=== PATIENT | male | born 1980 | race Caucasian/White ===

== ENCOUNTER 2016-11-01 17:03 | Emergency (ER) | payer SELFPAY ==
[~2016-11-01] VITALS: Ht 180.3 cm; Wt 93.2 kg
[~2016-11-01 17:03] MED LIST: ATENOLOL100 MG OR; ATENOLOL50 MG; CIPRO500 MG OR; FISH OIL1000 MG OR; FLEXERIL PO; ULTRAM50 M1 PO
[2016-11-01] MEDS ORDERED: NAPROSYN500 MG PO (19:15)
[2016-11-01 19:25] VITALS: BP 149/84
== END 2016-11-01 19:25 | disposition home or self-care (01) | DRG 558 ==
LOC: ED 17:03
DX: M76.52 Patellar tendinitis, left knee (principal); M25.462 Effusion, left knee; R50.9 Fever, unspecified

== ENCOUNTER 2018-04-30 18:20 | Emergency (ER) | payer SELFPAY ==
[~2018-04-30] VITALS: Ht 180.3 cm; Wt 86.0 kg
[~2018-04-30 18:20] MED LIST changes: +NAPROSYN500 MG PO
[2018-04-30 19:48] LABS: HEMATOCRIT 47.2 % (39.0-50.0); HEMOGLOBIN 16.2 g/dl (14.0-18.0); IMMATURE GRANULOCYTES 0.5 % (0.0-5.0); MEAN CORPUSCULAR HGB 31.9 pG CALC (26.0-32.0); MEAN CORPUSCULAR HGB CONC 34.3 g/L CALC (32.0-36.0); NEUT# 6.61 thou/uL (1.82-7.42); RED BLOOD COUNT 5.08 mill/uL (4.70-6.10)
[2018-04-30 19:49] LABS: MEAN CELL VOLUME 92.9 fL CALC (80.0-100.0)
[2018-04-30 20:06] LABS: ALBUMIN 4.3 g/dL (3.2-5.0); ALKALINE PHOSPHATASE 60 u/l (38-126); ANION GAP 16 (6-22 (CALC)); BILIRUBIN, TOTAL 0.4 mg/dL (0.0-1.4); BUN 15 mg/dL (9-20); BUN/CREATININE RATIO 13 (12-20 (CALC)); CARBON DIOXIDE 27 mmol/l (22-30); CHLORIDE 104 mmol/l (95-108); CREATININE 1.1 mg/dL (0.7-1.3); GFR > 60 ML/MIN (>=60 (CALC)); GFR FOR AFR.AMER. > 60 ML/MIN (>=60 (CALC)); POTASSIUM 3.9 mmol/l (3.5-5.1); SGOT/AST 23 u/l (17-59); SODIUM 142 mmol/l (137-146)
[2018-04-30] MEDS ORDERED: MEDDOSEPAK PO (20:30)
[2018-04-30] MEDS ORDERED: INDOCIN25 MG PO (20:30)
[2018-04-30] MEDS ORDERED: LORTAB 1010 MG PO (20:30)
[2018-04-30 20:44] VITALS: BP 167/115
== END 2018-04-30 20:44 | disposition home or self-care (01) | DRG 554 ==
LOC: ED 18:20
PROVIDERS: Emergency Medicine
DX: M10.062 Idiopathic gout, left knee (principal); I10 Essential (primary) hypertension; F17.210 Nicotine dependence, cigarettes, uncomplicated

== ENCOUNTER 2019-05-21 01:51 | Emergency (ER) | payer SELFPAY ==
[~2019-05-21] VITALS: Ht 180.3 cm; Wt 95.0 kg
[~2019-05-21 01:51] MED LIST changes: +INDOCIN25 MG PO; +LORTAB 1010 MG PO; +MEDDOSEPAK PO
[2019-05-21 02:56] LABS: HEMATOCRIT 44.2 % (39.0-50.0); HEMOGLOBIN 14.9 g/dl (14.0-18.0); IMMATURE GRANULOCYTES 0.4 % (0.0-5.0); MEAN CELL VOLUME 92.7 fL CALC (80.0-100.0); MEAN CORPUSCULAR HGB 31.2 pG CALC (26.0-32.0); MEAN CORPUSCULAR HGB CONC 33.7 g/L CALC (32.0-36.0); NEUT# 5.6 thou/uL (1.82-7.42); RED BLOOD COUNT 4.77 mill/uL (4.70-6.10); RED CELL DISTRI WIDTH 12.9 % (11.5-15.5)
[2019-05-21 03:12] LABS: ALBUMIN 4.1 g/dL (3.2-5.0); ALKALINE PHOSPHATASE 63 u/l (38-126); ANION GAP 15 (6-22 (CALC)); BILIRUBIN, TOTAL 0.8 mg/dL (0.0-1.4); BUN 19 mg/dL (9-20); BUN/CREATININE RATIO 17 (12-20 (CALC)); CARBON DIOXIDE 25 mmol/l (22-30); CHLORIDE 100 mmol/l (95-108); CREATININE 1.1 mg/dL (0.7-1.3); GFR > 60 ML/MIN (>=60 (CALC)); GFR FOR AFR.AMER. > 60 ML/MIN (>=60 (CALC)); POTASSIUM 4.1 mmol/l (3.5-5.1); SGOT/AST 24 u/l (17-59); SODIUM 137 mmol/l (137-146); TOTAL PROTEIN 7.7 g/dL (6.3-8.2)
[2019-05-21] MEDS ORDERED: INDOCIN25 MG PO (03:24)
[2019-05-21] MEDS ORDERED: ULTRAM50 M1 PO (03:24)
[2019-05-21 03:49] VITALS: BP 138/79
== END 2019-05-21 04:04 | disposition home or self-care (01) | DRG 554 ==
LOC: ED 01:51
PROVIDERS: Emergency Medicine
DX: M10.9 Gout, unspecified (principal); M1A.9XX0 Chronic gout, unspecified, without tophus (tophi)

== ENCOUNTER 2021-06-27 21:54 | Emergency (ER) | payer SELFPAY ==
[~2021-06-27] VITALS: Ht 180.3 cm; Wt 90.9 kg
[2021-06-27 22:53] LABS: IMMATURE GRANULOCYTES 0.1 % (0.0-5.0); MEAN CELL VOLUME 93.7 fL CALC (80.0-100.0); MEAN CORPUSCULAR HGB 31.8 pG CALC (26.0-32.0); MEAN CORPUSCULAR HGB CONC 33.9 g/dL CAL (32.0-36.0); NEUT# 4.99 thou/uL (1.82-7.42); RED BLOOD COUNT 5.57 mill/uL (4.70-6.10); RED CELL DISTRI WIDTH 12.4 % (11.5-15.5)
[2021-06-27 22:54] LABS: HEMATOCRIT 52.2 % (39.0-50.0); HEMOGLOBIN 17.7 g/dl (14.0-18.0)
[2021-06-27 23:17] LABS: URINE BILIRUBIN - DIPSTICK NEGATIVE (NEGATIVE); URINE BLOOD DIPSTICK NEGATIVE (NEGATIVE); URINE COLOR YELLOW; URINE GLUCOSE - DIPSTICK NEGATIVE (NEGATIVE); URINE KETONE NEGATIVE (NEGATIVE); URINE LEUK ESTERASE NEGATIVE (NEGATIVE); URINE PROTEIN - DIPSTICK NEGATIVE (NEG-TRACE); URINE UROBILINOGEN - DIPSTICK 0.2 E.U./dL (0.2)
[2021-06-27 23:18] LABS: ALBUMIN 4.2 g/dL (3.2-5.0); ALKALINE PHOSPHATASE 81 u/l (38-126); ANION GAP 14 (6-22 (CALC)); BILIRUBIN, TOTAL 0.6 mg/dL (0.0-1.4); BUN 16 mg/dL (9-20); BUN/CREATININE RATIO 13 (12-20 (CALC)); CARBON DIOXIDE 27 mmol/l (22-30); CHLORIDE 103 mmol/l (95-108); CREATININE 1.3 mg/dL (0.7-1.3); GFR 60 ML/MIN (>=60 (CALC)); GFR FOR AFR.AMER. > 60 ML/MIN (>=60 (CALC)); POTASSIUM 3.9 mmol/l (3.5-5.1); SGOT/AST 22 u/l (17-59); SODIUM 140 mmol/l (137-146); TOTAL PROTEIN 8.2 g/dL (6.3-8.2)
[2021-06-27 23:22] LABS: URINE NITRITE - DIPSTICK NEGATIVE (Negative)
[2021-06-27 23:30] LABS: MYOGLOBIN 15 ng/mL (0 - 121)
[2021-06-28] MEDS ORDERED: ATENOLOL25 MG PO (00:19)
[2021-06-28] MEDS ORDERED: AMLODIPINE BESYL5 MG PO (00:19)
[2021-06-28 00:30] VITALS: BP 143/77
== END 2021-06-28 00:30 | disposition home or self-care (01) | DRG 305 ==
LOC: ED 21:54
PROVIDERS: Family Medicine
DX: I10 Essential (primary) hypertension (principal); F41.9 Anxiety disorder, unspecified; F17.210 Nicotine dependence, cigarettes, uncomplicated; Z72.89 Other problems related to lifestyle

== ENCOUNTER 2021-10-19 13:31 | Emergency (ER) | payer SELFPAY ==
[~2021-10-19] VITALS: Ht 175.3 cm; Wt 90.2 kg
[~2021-10-19 13:31] MED LIST changes: +AMLODIPINE BESYL5 MG PO; +ATENOLOL25 MG PO
[2021-10-19 14:00] VITALS: BP 162/106
[2021-10-19 14:07] VITALS: BP 178/117
[2021-10-19 14:25] VITALS: BP 198/107
[2021-10-19 14:31] VITALS: BP 191/110
[2021-10-19 15:27] LABS: HEMATOCRIT 47.5 % (39.0-50.0); HEMOGLOBIN 15.9 g/dl (14.0-18.0); IMMATURE GRANULOCYTES 0.4 % (0.0-5.0); MEAN CELL VOLUME 93.5 fL CALC (80.0-100.0); MEAN CORPUSCULAR HGB 31.3 pG CALC (26.0-32.0); MEAN CORPUSCULAR HGB CONC 33.5 g/dL CAL (32.0-36.0); NEUT# 4.19 thou/uL (1.82-7.42); RED BLOOD COUNT 5.08 mill/uL (4.70-6.10); RED CELL DISTRI WIDTH 13.2 % (11.5-15.5)
[2021-10-19 15:50] LABS: ALBUMIN 4.3 g/dL (3.2-5.0); ALKALINE PHOSPHATASE 75 u/l (38-126); ANION GAP 16 (6-22 (CALC)); BILIRUBIN, TOTAL 0.5 mg/dL (0.0-1.4); BUN 20 mg/dL (9-20); BUN/CREATININE RATIO 16 (12-20 (CALC)); CARBON DIOXIDE 24 mmol/l (22-30); CHLORIDE 105 mmol/l (95-108); CREATININE 1.2 mg/dL (0.7-1.3); GFR > 60 ML/MIN (>=60 (CALC)); GFR FOR AFR.AMER. > 60 ML/MIN (>=60 (CALC)); SGOT/AST 28 u/l (17-59); SODIUM 141 mmol/l (137-146); TOTAL PROTEIN 8.2 g/dL (6.3-8.2)
[2021-10-19 16:25] VITALS: BP 191/110
== END 2021-10-19 16:25 | disposition home or self-care (01) | DRG 556 ==
LOC: ED 13:31
PROVIDERS: Internal Medicine
DX: M25.521 Pain in right elbow (principal); I10 Essential (primary) hypertension; M10.9 Gout, unspecified; F41.9 Anxiety disorder, unspecified; F17.200 Nicotine dependence, unspecified, uncomplicated

== ENCOUNTER 2022-04-18 17:38 | Emergency (ER) | payer SELFPAY ==
[~2022-04-18] VITALS: Ht 175.3 cm; Wt 92.7 kg
[2022-04-18] MEDS ORDERED: MEDDOSEPAK PO (20:19)
[2022-04-18] MEDS ORDERED: COLCHICINE0.6 M2 PO (20:28)
[2022-04-18 20:40] VITALS: BP 144/87
== END 2022-04-18 20:40 | disposition home or self-care (01) | DRG 554 ==
LOC: ED 17:38
DX: M10.9 Gout, unspecified (principal); M25.562 Pain in left knee; M13.80 Other specified arthritis, unspecified site

== ENCOUNTER 2022-11-21 13:48 | Emergency (ER) | payer SELFPAY ==
[~2022-11-21] VITALS: Ht 175.3 cm; Wt 91.0 kg
[~2022-11-21 13:48] MED LIST changes: +COLCHICINE0.6 M2 PO
[2022-11-21] MEDS ORDERED: TENORMIN25 MG PO (15:01)
[2022-11-21] MEDS ORDERED: PREDNISONE20 MG PO (15:23)
[2022-11-21] MEDS ORDERED: COLCHICINE0.6 M2 PO (15:23)
== END 2022-11-21 15:47 | disposition home or self-care (01) | DRG 554 ==
LOC: ED 13:48
DX: M10.061 Idiopathic gout, right knee (principal); I10 Essential (primary) hypertension; F41.9 Anxiety disorder, unspecified; F17.210 Nicotine dependence, cigarettes, uncomplicated